=== PATIENT | male | born 1950 | race Caucasian/White ===

== ENCOUNTER 2022-01-27 14:44 | Emergency (ER) | payer MEDICARE ==
[~2022-01-27] VITALS: Ht 177.8 cm; Wt 104.0 kg
[2022-01-27 16:15] VITALS: BP 148/55
[2022-01-27] MEDS ORDERED: TETANUS, DIPHTHERIA, PERTUSSIS VAC/PF 0.5ML (>10YR OLD) IM ONE (16:15)
[2022-01-27] MEDS ORDERED: HYDROCODONE/ACETAMINOPHEN 5/325MG TABLET PO ONE (16:15)
[2022-01-27] MEDS ORDERED: LIDOCAINE HCL/PF 1% 10 MG/ML 5ML VIAL INFIL ONE (17:00)
== END 2022-01-27 19:40 | disposition home or self-care (01) ==
LOC: ER 14:44
DX: K80.20 Calculus of gallbladder without cholecystitis without obstruction (principal); N39.0 Urinary tract infection, site not specified
CPT/HCPCS: 12002; 70450; 90471; 90715; 99284; J3490